=== PATIENT | male | born 1970 | race Hispanic/Latino ===

== ENCOUNTER 2017-10-16 12:22 | Inpatient (IN) | payer OTHER ==
[~2017-10-16] VITALS: Ht 175.3 cm; Wt 163.9 kg
[2017-10-16 12:42] LABS: BASOPHILS % (AUTO) 0.9 % (0.0-5.0); EOSINOPHILS % (AUTO) 4.4 % (0.0-8.0); HEMATOCRIT 43.9 % (42-54); LYMPHOCYTES % (AUTO) 17.3 % (21.0-51.0); MEAN CORPUSCULAR HEMOGLOBIN 28.4 pg (27.0-33.0); MEAN CORPUSCULAR VOLUME 83.7 fL (79-99); MONOCYTES % (AUTO) 7.4 % (3.0-13.0); PLATELET COUNT (AUTO) 221 K/uL (130-400); RED BLOOD CELL COUNT(AUTO) 5.24 MIL/uL (4.50-6.20); RED CELL DISTRIBUTION WIDTH 14.7 % (11.0-15.5); WHITE BLOOD COUNT (AUTO) 12.2 K/uL (4.8-10.8)
[2017-10-16 12:53] LABS: CREATININE 0.8 mg/dL (0.5-1.5); POTASSIUM 4.7 mmol/L (3.5-5.1)
[2017-10-16 12:56] LABS: INR 0.94 (0.85-1.15); PARTIAL THROMBOPLASTIN TIME 27.5 SEC (26.3-35.5); PROTHROMBIN TIME 9.9 SEC (9.6-11.6)
[2017-10-16 12:58] LABS: ALBUMIN 3.7 g/dL (3.5-5.0); BILIRUBIN,TOTAL 0.8 mg/dL (0.2-1.0); TOTAL PROTEIN, SERUM 8.1 g/dL (6.0-8.3)
[2017-10-16] MEDS ORDERED: VANCOMYCIN 1GM+NS 250ML 250 ML IV ONE (13:02)
[2017-10-16] MEDS ORDERED: SODIUM CHLORIDE 0.9% 10 ML VIAL IVP PRN (15:45)
[2017-10-16 16:00] VITALS: BP 152/86
[2017-10-16] MEDS: ENOXAPARIN SODIUM 40 MG/0.4 ML SYRINGE SQ SCH (17:32)
[2017-10-16] MEDS: CLINDAMYCIN 600 MG/D5% WATER 50 ML IV SCH (17:32)
[2017-10-16] MEDS ORDERED: HYDRALAZINE HCL 20 MG/ML VIAL IV PRN (18:45)
[2017-10-16] MEDS ORDERED: ACETAMINOPHEN 325 MG TAB PO PRN (18:45)
[2017-10-16 20:00] VITALS: BP 148/88
[2017-10-16] MEDS: FAMOTIDINE 20MG TAB 20 MG TAB PO SCH (21:05)
[2017-10-17] VITALS: BP 132/76
[2017-10-17] MEDS ORDERED: SODIUM CHLORIDE 0.9% 500ML 500 ML IV ONE (01:28)
[2017-10-17] MEDS: CLINDAMYCIN 600 MG/D5% WATER 50 ML IV SCH ×2 (01:35→08:27)
[2017-10-17 04:00] VITALS: BP 142/94
[2017-10-17 05:37] LABS: BASOPHILS % (AUTO) 0.8 % (0.0-5.0); EOSINOPHILS % (AUTO) 5.5 % (0.0-8.0); HEMATOCRIT 39.8 % (42-54); MEAN CORPUSCULAR HEMOGLOBIN 29.3 pg (27.0-33.0); MEAN CORPUSCULAR HGB CONC 34.7 g/dL (32.0-36.0); MEAN CORPUSCULAR VOLUME 84.5 fL (79-99); NEUTROPHILS % (AUTO) 62.7 % (40.0-77.0); PLATELET COUNT (AUTO) 207 K/uL (130-400); RED BLOOD CELL COUNT(AUTO) 4.71 MIL/uL (4.50-6.20); RED CELL DISTRIBUTION WIDTH 15.2 % (11.0-15.5); WHITE BLOOD COUNT (AUTO) 9.8 K/uL (4.8-10.8)
[2017-10-17 05:55] LABS: CREATININE 0.9 mg/dL (0.5-1.5); POTASSIUM 4.1 mmol/L (3.5-5.1)
[2017-10-17 06:00] LABS: HEMOGLOBIN A1C 6.9 % (4.0-6.0)
[2017-10-17] MEDS ORDERED: SODIUM CHLORIDE 0.9% 250 ML IV ONE (08:08)
[2017-10-17 08:28] VITALS: BP 162/95
[2017-10-17] MEDS: FAMOTIDINE 20MG TAB 20 MG TAB PO SCH (08:28)
[2017-10-17] MEDS: ENOXAPARIN SODIUM 40 MG/0.4 ML SYRINGE SQ SCH (08:28)
[2017-10-17] MEDS ORDERED: [UNRECOGNIZED DRUG - CODE] IV (10:21)
[2017-10-17] MEDS ORDERED: METF500T6 PO (10:21)
[2017-10-17 11:58] VITALS: BP 143/84
== END 2017-10-17 17:00 | disposition home or self-care (01) | DRG 383 ==
LOC: EDH 12:22 → EDHIP 14:45 → 3BH 15:19
PROVIDERS: ADMIT Family Medicine; ATTEND Family Medicine
DX: L03.115 Cellulitis of right lower limb (principal); D72.829 Elevated white blood cell count, unspecified; L03.116 Cellulitis of left lower limb; I10 Essential (primary) hypertension; Z88.0 Allergy status to penicillin; Z83.3 Family history of diabetes mellitus
CPT/HCPCS: 36415; 80048; 80053; 80061; 83036; 83605; 83880; 85025; 85610; 85651; 85730; 87040; 93970; J1650; J3370; J3490; J7030; J7040

== ENCOUNTER 2023-03-04 17:44 | Inpatient (IN) | payer OTHER ==
[~2023-03-04] VITALS: Ht 172.7 cm; Wt 164.4 kg
[~2023-03-04 17:44] MED LIST: METF-444 PO; [UNRECOGNIZED DRUG - CODE] IV
[2023-03-04 18:20] LABS: HEMATOCRIT 45.4 % (42-54); MEAN CORPUSCULAR HEMOGLOBIN 27.7 pg (27.0-33.0); MEAN CORPUSCULAR HGB CONC 33.3 g/dL (32.0-36.0); MEAN CORPUSCULAR VOLUME 83.3 fL (79-99); RED BLOOD CELL COUNT(AUTO) 5.45 MIL/uL (4.50-6.20); RED CELL DISTRIBUTION WIDTH 14.6 % (11.0-15.5); WHITE BLOOD COUNT (AUTO) 10.4 K/uL (4.8-10.8)
[2023-03-04 18:41] LABS: CREATININE 0.9 mg/dL (0.5-1.5); POTASSIUM 3.8 mmol/L (3.5-5.1)
[2023-03-04 20:00] VITALS: BP 144/80; PULSE 63; RESP 16
[2023-03-04] MEDS ORDERED: IOHEXOL-350 75 ML VIAL IV ONE (20:39)
[2023-03-04] MEDS ORDERED: VANCOMYCIN PROTOCOL PER PHARMACY IV PRN (22:00)
[2023-03-04] MEDS ORDERED: MORPHINE 4 MG SYG IV PRN (22:00)
[2023-03-04] MEDS ORDERED: HYDRALAZINE 20MG/ML VIAL IV PRN (22:00)
[2023-03-04] MEDS ORDERED: MAGNESIUM 2GM PREMIX 50ML 50 ML IV PRN (22:00)
[2023-03-04] MEDS ORDERED: MORPHINE 2 MG SYG IV PRN (22:00)
[2023-03-04] MEDS ORDERED: ACETAMINOPHEN 325 MG TAB PO PRN ×2 (22:00)
[2023-03-04] MEDS ORDERED: ONDANSETRON 4MG INJ IV PRN (22:00)
[2023-03-04] MEDS ORDERED: POTASSIUM CHLORIDE 10% ELIXIR 20 MEQ/15 ML UDCUP PO PRN (22:00)
[2023-03-04] MEDS ORDERED: POTASSIUM CHLORIDE 20MEQ/100ML 100 ML IV PRN (22:00)
[2023-03-04] MEDS ORDERED: VANCOMYCIN 2GM/500 ML BAG 500 ML IV ONE (22:30)
[2023-03-04] MEDS: CEFEPIME HCL 1 GM VIAL IVPB SCH (22:41)
[2023-03-04] MEDS ORDERED: CARV25TA PO (22:57)
[2023-03-04] MEDS ORDERED: LISI20TA24 PO (22:57)
[2023-03-04] MEDS ORDERED: FURO20TA4 PO (22:57)
[2023-03-04] MEDS ORDERED: METF-444 PO (22:57)
[2023-03-04] MEDS ORDERED: HYDR25 PO (22:58)
[2023-03-04] MEDS ORDERED: FELO5TAB48 PO (22:58)
[2023-03-05] VITALS (7 sets, daily range): BP systolic 117–154; BP diastolic 53–87; PULSE 58–62; RESP 16–20; O2SAT 98
[2023-03-05 04:32] LABS: BASOPHILS # (AUTO) 0.07 K/uL (0.00-0.20); BASOPHILS % (AUTO) 0.7 % (0.0-5.0); EOSINOPHILS # (AUTO) 0.46 K/uL (0.00-0.70); EOSINOPHILS % (AUTO) 4.7 % (0.0-8.0); HEMATOCRIT 44.4 % (42-54); IMMATURE GRANULOCYTE ABSOLUTE 0.03 K/uL (0-1); LYMPHOCYTES # (AUTO) 2.3 K/uL (1.0-4.8); LYMPHOCYTES % (AUTO) 23.6 % (21.0-51.0); MEAN CORPUSCULAR HGB CONC 32.9 g/dL (32.0-36.0); MEAN CORPUSCULAR VOLUME 85.1 fL (79-99); MONOCYTES # (AUTO) 0.8 K/uL (0.1-1.0); MONOCYTES % (AUTO) 8.6 % (3.0-13.0); NEUTROPHILS % (AUTO) 62.1 % (40.0-77.0); PLATELET COUNT (AUTO) 216 K/uL (130-400); RED BLOOD CELL COUNT(AUTO) 5.22 MIL/uL (4.50-6.20); RED CELL DISTRIBUTION WIDTH 14.5 % (11.0-15.5); WHITE BLOOD COUNT (AUTO) 9.7 K/uL (4.8-10.8)
[2023-03-05 04:50] LABS: CREATININE 0.8 mg/dL (0.5-1.5); MAGNESIUM 1.8 mg/dL (1.80-2.40); POTASSIUM 3.3 mmol/L (3.5-5.1)
[2023-03-05] MEDS: KCL 20 MEQ ERTAB PO PRN ×3 (05:55→13:32)
[2023-03-05] MEDS: CEFEPIME HCL 1 GM VIAL IVPB SCH ×3 (05:57→22:10)
[2023-03-05 06:30] LABS: HEMOGLOBIN A1C 6.7 % (4.0-6.0)
[2023-03-05] MEDS: INSULIN HUMULIN R 100 UNIT/ML 3ML SQ SCH ×4 (06:52→20:26)
[2023-03-05] MEDS: LISINOPRIL 20 MG TABLET PO SCH ×2 (09:52→20:24)
[2023-03-05] MEDS: HYDRALAZINE 25MG TABLET PO SCH ×2 (09:53→20:25)
[2023-03-05] MEDS: AMLODIPINE 5 MG TAB PO SCH (09:53)
[2023-03-05] MEDS: FAMOTIDINE 20MG TAB PO SCH ×2 (09:53→20:25)
[2023-03-05] MEDS: ENOXAPARIN SODIUM 40 MG/0.4 ML SYRINGE SQ SCH (09:54)
[2023-03-05] MEDS: CARVEDILOL 25 MG TABLET PO SCH ×2 (09:54→20:25)
[2023-03-05] MEDS: VANCOMYCIN 1.5 GM/250 ML BAG 250 ML IV SCH ×2 (10:49→22:10)
[2023-03-06] VITALS (7 sets, daily range): BP systolic 116–146; BP diastolic 64–83; PULSE 60–65; RESP 16–20; O2SAT 95–98
[2023-03-06 03:38] LABS: BASOPHILS # (AUTO) 0.05 K/uL (0.00-0.20); BASOPHILS % (AUTO) 0.5 % (0.0-5.0); EOSINOPHILS # (AUTO) 0.39 K/uL (0.00-0.70); EOSINOPHILS % (AUTO) 4.3 % (0.0-8.0); HEMATOCRIT 41.9 % (42-54); IMMATURE GRANULOCYTE ABSOLUTE 0.03 K/uL (0-1); LYMPHOCYTES % (AUTO) 21.4 % (21.0-51.0); MEAN CORPUSCULAR HEMOGLOBIN 28.1 pg (27.0-33.0); MEAN CORPUSCULAR HGB CONC 33.7 g/dL (32.0-36.0); MEAN CORPUSCULAR VOLUME 83.6 fL (79-99); MONOCYTES # (AUTO) 0.8 K/uL (0.1-1.0); MONOCYTES % (AUTO) 9.1 % (3.0-13.0); NEUTROPHILS # (AUTO) 5.9 K/uL (1.8-7.7); NEUTROPHILS % (AUTO) 64.4 % (40.0-77.0); PLATELET COUNT (AUTO) 199 K/uL (130-400); RED BLOOD CELL COUNT(AUTO) 5.01 MIL/uL (4.50-6.20); RED CELL DISTRIBUTION WIDTH 14.4 % (11.0-15.5); WHITE BLOOD COUNT (AUTO) 9.1 K/uL (4.8-10.8)
[2023-03-06 03:40] LABS: CREATININE 0.9 mg/dL (0.5-1.5); MAGNESIUM 1.9 mg/dL (1.80-2.40); POTASSIUM 3.7 mmol/L (3.5-5.1)
[2023-03-06] MEDS: KCL 20 MEQ ERTAB PO PRN (04:15)
[2023-03-06] MEDS: CEFEPIME HCL 1 GM VIAL IVPB SCH ×3 (05:45→20:41)
[2023-03-06] MEDS: INSULIN HUMULIN R 100 UNIT/ML 3ML SQ SCH ×4 (06:34→20:41)
[2023-03-06] MEDS: FAMOTIDINE 20MG TAB PO SCH ×2 (09:32→20:40)
[2023-03-06] MEDS: VANCOMYCIN 1.5 GM/250 ML BAG 250 ML IV SCH ×2 (09:32→20:39)
[2023-03-06] MEDS: AMLODIPINE 5 MG TAB PO SCH (09:32)
[2023-03-06] MEDS: LISINOPRIL 20 MG TABLET PO SCH ×2 (09:32→20:40)
[2023-03-06] MEDS: CARVEDILOL 25 MG TABLET PO SCH ×2 (09:32→20:40)
[2023-03-06] MEDS: ENOXAPARIN SODIUM 40 MG/0.4 ML SYRINGE SQ SCH (09:33)
[2023-03-06] MEDS: HYDRALAZINE 25MG TABLET PO SCH ×2 (09:33→20:40)
[2023-03-07 03:33] LABS: BASOPHILS # (AUTO) 0.06 K/uL (0.00-0.20); BASOPHILS % (AUTO) 0.7 % (0.0-5.0); EOSINOPHILS % (AUTO) 4.6 % (0.0-8.0); IMMATURE GRANULOCYTE ABSOLUTE 0.03 K/uL (0-1); LYMPHOCYTES # (AUTO) 1.9 K/uL (1.0-4.8); LYMPHOCYTES % (AUTO) 21.8 % (21.0-51.0); MEAN CORPUSCULAR HEMOGLOBIN 27.9 pg (27.0-33.0); MEAN CORPUSCULAR VOLUME 84.6 fL (79-99); MONOCYTES # (AUTO) 0.8 K/uL (0.1-1.0); MONOCYTES % (AUTO) 9.4 % (3.0-13.0); NEUTROPHILS # (AUTO) 5.5 K/uL (1.8-7.7); NEUTROPHILS % (AUTO) 63.2 % (40.0-77.0); PLATELET COUNT (AUTO) 199 K/uL (130-400); RED CELL DISTRIBUTION WIDTH 14.5 % (11.0-15.5); WHITE BLOOD COUNT (AUTO) 8.7 K/uL (4.8-10.8)
[2023-03-07 03:45] LABS: CREATININE 0.8 mg/dL (0.5-1.5); POTASSIUM 3.7 mmol/L (3.5-5.1)
[2023-03-07 03:50] LABS: B-TYPE NATRIURETIC PEPTIDE 37 pg/mL (0-100)
[2023-03-07 03:59] VITALS: BP 138/76; PULSE 61; RESP 20
[2023-03-07] MEDS: CEFEPIME HCL 1 GM VIAL IVPB SCH (06:00)
[2023-03-07] MEDS: INSULIN HUMULIN R 100 UNIT/ML 3ML SQ SCH (06:10)
[2023-03-07 07:35] VITALS: O2SAT 94
[2023-03-07] MEDS ORDERED: CLIN-141 PO (07:43)
[2023-03-07 08:01] VITALS: BP 146/95; PULSE 56; RESP 19
[2023-03-07] MEDS: ENOXAPARIN SODIUM 40 MG/0.4 ML SYRINGE SQ SCH (09:00)
[2023-03-07] MEDS: FAMOTIDINE 20MG TAB PO SCH (09:23)
[2023-03-07] MEDS: LISINOPRIL 20 MG TABLET PO SCH (09:23)
[2023-03-07] MEDS: HYDRALAZINE 25MG TABLET PO SCH (09:23)
[2023-03-07] MEDS: AMLODIPINE 5 MG TAB PO SCH (09:24)
[2023-03-07 09:25] VITALS: BP 146/95
[2023-03-07] MEDS: CARVEDILOL 25 MG TABLET PO SCH (09:25)
[2023-03-07] MEDS: VANCOMYCIN 1.5 GM/250 ML BAG 250 ML IV SCH ×2 (09:25→09:37)
== END 2023-03-07 12:00 | disposition home or self-care (01) | DRG 603 ==
LOC: EDH 17:44 → EDHIP 17:45 → 3BH 22:16
PROVIDERS: ADMIT Internal Medicine; ATTEND Internal Medicine
DX: L03.116 Cellulitis of left lower limb (principal); L97.929 Non-pressure chronic ulcer of unspecified part of left lower leg with unspecified severity; Z68.43 Body mass index [BMI] 50.0-59.9, adult; E78.00 Pure hypercholesterolemia, unspecified; N20.0 Calculus of kidney; E66.9 Obesity, unspecified; E11.51 Type 2 diabetes mellitus with diabetic peripheral angiopathy without gangrene; I10 Essential (primary) hypertension; I99.8 Other disorder of circulatory system; Z75.3 Unavailability and inaccessibility of health-care facilities; Z87.442 Personal history of urinary calculi; Z79.84 Long term (current) use of oral hypoglycemic drugs; Z79.899 Other long term (current) drug therapy
CPT/HCPCS: 36415; 71270; 80048; 80202; 82948; 83036; 83605; 83735; 83880; 84145; 85025; 85027; 85378; 93971; G0378; J0692; J1650; J3475; Q9967; J3370

== ENCOUNTER 2024-04-22 15:37 | Emergency (ER) | payer SELFPAY ==
[~2024-04-22] VITALS: Ht 172.7 cm; Wt 166.5 kg
[~2024-04-22 15:37] MED LIST changes: +CARV25TA PO; +CLIN-141 PO; +FELO5TAB48 PO; +FURO20TA4 PO; +HYDR25 PO; +LISI20TA24 PO; -[UNRECOGNIZED DRUG - CODE] IV
[2024-04-22 15:54] VITALS: TEMP 97.9
--- NOTE | 2024-04-22 15:55 | ERN ---
ED Note History of Present Illness Stated Complaint: STOMACH PAIN Chief Complaint: Abdominal Pain Time Seen by MD: 15:49 Dictation: PATIENT IS A 54-YEAR-OLD MALE COMING IN TODAY WITH COMPLAINTS OF HAVING LOWER ABDOMINAL PAIN THAT OCCASIONALLY RADIATES TO HIS RIGHT LOWER QUADRANT ONSET SEVERAL MONTHS AGO. NO FEVER NO CHILLS NO NAUSEA VOMITING. STATES HE SAW HIS PRIMARY CARE DOCTOR ABOUT A MONTH AGO FOR THE SAME COMPLAINT, AND WITHOUT BENEFIT OF LABS OR RADIOLOGY SHE TOLD HIM IT COULD BE DIVERTICULITIS OR A KINK OR HERNIA. HE STATES SHE DID NOT SEND HIM FOR ANY TESTING OR LABS BECAUSE OF HIS INSURANCE. STATES HE NOTICED WHEN HE WAS EATING NUTS THAT IT WOULD CAUSE MORE PAIN AND HE STOPPED EATING NOSE SEVERAL WEEKS AGO. Allergies: Coded Allergies: Penicillins (Unverified Allergy, Intermediate, RASH, 10/16/17) Home Meds Active Scripts Clindamycin HCl (Clindamycin HCl) 300 Mg Capsule, 600 MG PO q8hr for 5 Days, #15 CAP Prov:TAVIA MOTA ESCROW ASSISTANT 03/07/23 Reported Medications Hydralazine HCl (Apresoline) 25 Mg Tab, 25 MG PO BID for blood pressure 03/04/23 Felodipine (Felodipine ER) 5 Mg Tab.er.24h, 5 MG PO DAILY for blood pressure 03/04/23 Metformin HCl (Metformin HCl) 500 Mg Tablet, 500 MG PO BID, TAB 03/04/23 Carvedilol (Carvedilol) 25 Mg Tablet, 25 MG PO BID 03/04/23 Lisinopril (Lisinopril) 20 Mg Tablet, 20 MG PO BID for blood pressure 03/04/23 Furosemide (Furosemide) 20 Mg Tablet, 20 MG PO DAILY PRN for fluid retention 03/04/23 Past Medical History Past Medical History: Diabetes-Type II, High Cholesterol, Hypertension Surgical History: Other Surgical History Other: KNEE PSYCH History: no pertinent psych hx RN Note Reviewed/Agreed w/PFSH: Yes Review of System Dictation CONSTITUTIONAL: NEGATIVE EXCEPT FOR HPI HEAD/FACE: NEGATIVE EXCEPT FOR HPI EENT: NEGATIVE EXCEPT FOR HPI RESPIRATORY: NEGATIVE EXCEPT FOR HPI GASTROINTESTINAL/ABDOMINAL: NEGATIVE EXCEPT FOR HPI PERIUMBILICAL PAIN GENITOURINARY: NEGATIVE EXCEPT FOR HPI MUSCULOSKELETAL: NEGATIVE EXCEPT FOR HPI INTEGUMENTARY: NEGATIVE EXCEPT FOR HPI NEUROLOGICAL/PSYCH: NEGATIVE EXCEPT FOR HPI HEMATOLOGIC/LYMPHATIC: NEGATIVE EXCEPT FOR HPI ALL SYSTEMS NEGATIVE, EXCEPT NOTED ABOVE. 13 POINT REVIEW OF SYSTEMS ASSESSED AND ALL NEGATIVE EXCEPT FOR ABOVE. Initial Vital Sign VS Vital Signs Date Time Temp Pulse Resp B/P (MAP) Pulse Ox O2 Delivery O2 Flow Rate FiO2 04/22/24 15:54 97.9 81 16 203/112 98 Room Air* 0 21 Physical Exam Dictation VITAL SIGNS REVIEWED GENERAL APPEARANCE: ALERT, ORIENTED X 3, MILD ACUTE DISTRESS, WELL DEVELOPED, NOURISHED. MORBIDLY OBESE AND MAKES ASSESSMENT DIFFICULT DUE TO BODY HABITUS HEAD AND FACE: NON-TRAUMATIC. EYES: PERRL, PINK CONJUNCTIVAS, EYELID NO TRAUMA, ANTERIOR CHAMBER WITH ARCUS SENILIS. EARS: PINNAS INTACT AND NO SIGNS OF TRAUMA OR ERYTHEMA EAR CANALS CLEAR AND NO DISCHARGE TM NO ERYTHEMA NOSE: NO DISCHARGE, NO BLEEDING. OROPHARYNX: MOUTH NORMAL, TONGUE PINK, PHARYNX CLEAR,NO ERYTHEMA, TONSILS NO EXUDATES, NO ABSCESSES NOTED, MUCOUS MEMBRANE MOIST NECK: SUPPLE, NON-TENDER, NO THYROMEGALY, NO MASSES, NO JVD, NO BRUITS BREAST:DEFERRED CHEST:NO TENDERNESS, NO CREPITUS, NO PARADOXICAL MOVEMENT, NO RETRACTIONS LUNGS:CLEAR, WELL-VENTILATED, SYMMETRIC, NO RALES, NO WHEEZING, NO RHONCHI, NO STRIDOR, GOOD BREATH SOUNDS BILATERALLY HEART: REGULAR RATE, REGULAR RHYTHM, VASCULAR: NO PERIPHERAL EDEMA, ABDOMEN: SOFT, POSITIVE BOWEL SOUNDS, NONDISTENDED, NO GUARDING, PERIUMBILICAL TENDERNESS, NEGATIVE REBOUND MCBURNEY'S POINT PAIN RECTAL: DEFERRED GENITAL: DEFERRED NEUROLOGICAL: NORMAL SPEECH, MOTOR FUNCTION INTACT, SENSORY FUNCTION INTACT MUSCULOSKELETAL: NECK NONTENDER, FULL RANGE OF MOTION, BACK NONTENDER, FULL RANGE OF MOTION, EXTREMITIES: NONTENDER, FULL RANGE OF MOTION SKIN: COLOR PINK, DRY, NO TURGOR, NO RASH, NO LACERATIONS, NO ABRASIONS, NO CONTUSIONS. LYMPHATIC: DEFERRED Results (Laboratory/Radiology) Laboratory/Radiology Laboratory Tests Test 04/22/24 16:57 White Blood Count 12.5 K/uL (4.8-10.8) H Red Blood Count 6.13 MIL/uL (4.50-6.20) Hemoglobin 17.2 g/dL (14.0-18.0) Hematocrit 50.9 % (42-54) Mean Corpuscular Volume 83.0 fL (79-99) Mean Corpuscular Hemoglobin 28.1 pg (27.0-33.0) Mean Corpuscular Hemoglobin Concent 33.8 g/dL (32.0-36.0) Red Cell Distribution Width 13.7 % (11.0-15.5) Platelet Count 282 K/uL (130-400) Mean Platelet Volume 10.0 fL (7.5-10.5) Immature Granulocyte % (Auto) 0.3 % (0-1) Neutrophils (%) (Auto) 78.8 % (40.0-77.0) H Lymphocytes (%) (Auto) 12.9 % (21.0-51.0) L Monocytes (%) (Auto) 6.1 % (3.0-13.0) Eosinophils (%) (Auto) 1.3 % (0.0-8.0) Basophils (%) (Auto) 0.6 % (0.0-5.0) Neutrophils # (Auto) 9.8 K/uL (1.8-7.7) H Lymphocytes # (Auto) 1.6 K/uL (1.0-4.8) Monocytes # (Auto) 0.8 K/uL (0.1-1.0) Eosinophils # (Auto) 0.16 K/uL (0.00-0.70) Basophils # (Auto) 0.08 K/uL (0.00-0.20) Absolute Immature Granulocyte (auto 0.04 K/uL (0-1) Nucleated Red Blood Cells 0.0 % (0.0-0.19) Sodium Level 142 mmol/L (136-145) Potassium Level 3.4 mmol/L (3.5-5.1) L Chloride Level 102 mmol/L (101-111) Carbon Dioxide Level 31 mmol/L (21-32) Blood Urea Nitrogen 10 mg/dL (7-18) Creatinine 0.9 mg/dL (0.5-1.3) Glomerular Filtration Rate Calc 101 mL/min (>90) Random Glucose 130 mg/dL (70-105) H Total Calcium 8.9 mg/dL (8.5-10.1) Lipase 43 U/L (16-77) COMPARISON: None FINDINGS: ABDOMEN: Heart size is normal. Visible lung bases are clear. The liver is normal in size and smooth in contour without lesions or biliary duct dilation. Diffuse low attenuation of the liver parenchyma suggests fatty change. The spleen is normal in size without lesions. A few punctate calcific gallstones. The pancreas appears normal without pancreatic duct dilation. The adrenal glands appear normal. Several subcentimeter nonobstructing stones along the medullary portions of both kidneys, left greater than right. Approximately 5-6 on the left and 5 on the right. Cortical volume loss at the upper pole of left kidney may be related to prior infection or other insult. Cortical nephrograms are symmetric and normal in appearance bilaterally. No evidence for intra-abdominal free air or organized fluid collection. No retrocrural, intraabdominal, or retroperitoneal lymphadenopathy identified. No aortic aneurysmal dilation or dissection identified. PELVIS: No evidence for free air or organized pelvic fluid collection. No significant pelvic adenopathy detected. Fluid-filled dilated small bowel loops secondary to small to medium-sized nonobstructing umbilical hernia which also contains a small amount of fluid. Terminal ileum appears normal. The appendix appears normal. The urinary bladder appears unremarkable. Visible osseous structures are intact. IMPRESSION: Small to medium-sized umbilical hernia contributing to acute small bowel obstruction. General surgery consult is recommended. Cholelithiasis and hepatic steatosis. Labs Reviewed?: Yes ED Course ED Course Orders Procedure Category Date Status Time Cbc With Differential LAB 04/22/24 Complete 15:52 Urinalysis Profile LAB 04/22/24 Logged 15:52 Ct Abdomen/Pelvis CT 04/22/24 Resulted W/Contrast 15:52 0.9%Nacl 1000ml (Ns PHA 04/22/24 Complete 1000ml) 16:00 Ketorolac PHA 04/22/24 Complete Tromethamine 30mg/Ml 16:00 Lipase LAB 04/22/24 Complete 15:52 Basic Metabolic Panel LAB 04/22/24 Complete 15:52 Iohexol (Omnipaque) PHA 04/22/24 Complete 17:24 Current Medications Medications (Trade) Dose Ordered Sig/Christian Route PRN Reason Start Time Stop Time Status Last Admin Dose Admin Iohexol (Omnipaque) 35,000 mg STK-MED ONCE IV 04/22/24 17:24 04/22/24 17:24 DC Ketorolac Tromethamine (toRADol) 30 mg ONCE ONCE IVP 04/22/24 16:00 04/22/24 16:08 DC 04/22/24 17:09 Sodium Chloride 1,000 ml @ 0 mls/hr ONCE ONCE IV 04/22/24 16:00 04/22/24 16:08 DC 04/22/24 17:10 Vital Signs Date Time Temp Pulse Resp B/P (MAP) Pulse Ox O2 Delivery O2 Flow Rate FiO2 04/22/24 17:59 74 20 164/86 99 Room Air* 0 21 04/22/24 15:54 97.9 81 16 203/112 98 Room Air 0 04/22/24 15:54 97.9 81 16 203/112 98 Room Air* 0 21 EIGHTEEN 30, PAGED X2 WITHOUT RESULTS. PATIENT IN NO ACUTE DISTRESS HERNIA REMAINS REDUCED. WE WILL DISCHARGE PATIENT HOME TO FOLLOW UP WITH HER IN THE NEXT 1-2 DAYS NEEDED ALSO SUGGESTED WEARING AN ABDOMINAL BINDER. Medical Decision Making MDM MDM: DIFFERENTIAL DIAGNOSIS: APPENDICITIS VERSUS DIVERTICULIT IS/HERNIA/UTI/ELECTROLYTE IMBALANCE/DEHYDRATION RATIONALE: TESTS CONSIDERED AND ORDERED SECONDARY TO SHARED DECISION MAKING INCL UDE: LABS/RADIOLOGY PREVIOUS OUTSIDE RECORDS REVIEWED: OLD ER VISITS. REVIEWED RISK OF COMPLICATION AND/OR MORBIDITY OR MORTALITY OF PATIENT MANAGEMENT: NONE MEDICATIONS-PER MEDICATION RECONCILIATION SEE NURSE'S NOTES NEED FOR HOSPITALIZATION: PATIENT DOES NOT MEET CRITERIA FOR HOSPITALIZATION. NO, HERNIA REDUCED NO NAUSEA NO VOMITING AND PATIENT IN WITHOUT PAIN NEED FOR EMERGENCY MAJOR/MINOR SURGERY: NO THERE ARE NO SOCIAL CONCERNS WITH THIS PATIENT. PRESCRIPTION DRUG MANAGEMENT IBUPROFEN PRESCRIPTIONS WILL INCLUDE SYMPTOMATIC CARE PATIENT'S PRIOR EXTERNAL MEDICAL RECORDS FROM OTHER ER VISITS WERE REVIEWED BY ME INDICATED. PRIOR TESTING AND RESULTS FROM PREVIOUS VISITS WERE REVIEWED. PRIOR TESTS WERE TAKEN INTO ACCOUNT WITH MEDICAL DECISION MAKING AND RESOURCE UTILIZATION, INDEPENDENT HISTORIAN/HISTORIANS WERE USED TO OBTAIN COMPLETE MEDICAL HISTORY. I INDEPENDENTLY INTERPRETED THE TEST THAT WERE PERFORMED, RESULTS WERE REVIEWED BY ME AND CONSIDERED FINDINGS ON RADIOLOGY IF ORDERED. MEDICAL MANAGEMENT AND EXAMINATION INTERPRETATION DISCUSSIONS WERE HAD BY ME WITH OTHER QUALIFIED HEALTHCARE PROFESSIONALS INDICATED FOR THE PATIENT'S CARE. PREVIOUS SEVEN HE HAD ONE Procedure Procedure Dictation: ONE THOUSAND EIGHT HUNDRED, PATIENT HAD PROCEDURE EXPLAINED HE AGREED TO PROCEED. PATIENT WAS PLACED IN [place] UMBILICAL HERNIA WAS REDUCED WITH REDUCTION FELT NO PAIN AT THIS TIME. PATIENT TOLERATED WELL. WE WILL CONSULT GENERAL SURGEON FOR ADDITIONAL GUIDANCE DX & DISP Disposition: Discharge Departure Impression: Primary Impression: Umbilical hernia Condition: Stable Scripts Ibuprofen (Ibuprofen 800 mg Tab) 800 Mg Tab 800 MG PO Q8H PRN for fever or pain, #30 TAB 0 Refills Prov: DREAD GUERRERO NP 04/22/24 Additional Instructions: FOLLOW-UP WITH PRIMARY CARE PROVIDER IN 1 TO 2 DAYS. TAKE MEDICATIONS DIRECTED HERE IN THE EMERGENCY ROOM. OKAY TO CONTINUE HOME MEDICATIONS UNLESS OTHERWISE DISCUSSED DURING YOUR VISIT IN THE EMERGENCY ROOM TODAY. RETURN TO YOUR NEAREST EMERGENCY ROOM IF SYMPTOMS WORSEN OR IF THERE IS NO IMPROVEMENT. CALL 911 IF YOU NEED IMMEDIATE ASSISTANCE. TAKE TYLENOL OR MOTRIN [id number] NEEDED AND IF NO CONTRAINDICATIONS ARE PRESENT. INCREASE ORAL HYDRATION. A WOUND CULTURE OR URINE CULTURE WAS ORDERED HERE IN THE EMERGENCY ROOM DEPARTMENT PLEASE FOLLOW-UP WITH PRIMARY CARE PROVIDER AND ADVISE THEM TO GET REPEAT PORTS FROM OUR FACILITY. IF YOU HAD ANY JUDITH WRAP/SPLINTS THAT WERE APPLIED HERE, PLEASE DO NOT REMOVE THEM UNTIL YOU SEE YOUR PRIMARY CARE OR SPECIALTY. SUGGEST WEARING ABDOMINAL BINDER AT ALL TIMES. NO LIFTING GREATER THAN 10 LB UNTIL CLEARED BY SURGEON. CALL FOR AN APPOINTMENT IN 1-2 DAYS Referrals: MENDEL TEAGUE NP (PCP) M[place] DAY MD Time of Disposition: 18:34 I have reviewed the case, and I agree with, Diagnosis and Plan DREAD GUERRERO NP Apr 22, 2024 15:55
[2024-04-22 17:02] LABS: BASOPHILS # (AUTO) 0.08 K/uL (0.00-0.20); BASOPHILS % (AUTO) 0.6 % (0.0-5.0); EOSINOPHILS # (AUTO) 0.16 K/uL (0.00-0.70); EOSINOPHILS % (AUTO) 1.3 % (0.0-8.0); HEMATOCRIT 50.9 % (42-54); IMMATURE GRANULOCYTE ABSOLUTE 0.04 K/uL (0-1); LYMPHOCYTES # (AUTO) 1.6 K/uL (1.0-4.8); LYMPHOCYTES % (AUTO) 12.9 % (21.0-51.0); MEAN CORPUSCULAR HEMOGLOBIN 28.1 pg (27.0-33.0); MEAN CORPUSCULAR HGB CONC 33.8 g/dL (32.0-36.0); MONOCYTES # (AUTO) 0.8 K/uL (0.1-1.0); MONOCYTES % (AUTO) 6.1 % (3.0-13.0); NEUTROPHILS # (AUTO) 9.8 K/uL (1.8-7.7); NEUTROPHILS % (AUTO) 78.8 % (40.0-77.0); PLATELET COUNT (AUTO) 282 K/uL (130-400); RED BLOOD CELL COUNT(AUTO) 6.13 MIL/uL (4.50-6.20); RED CELL DISTRIBUTION WIDTH 13.7 % (11.0-15.5); WHITE BLOOD COUNT (AUTO) 12.5 K/uL (4.8-10.8)
[2024-04-22] MEDS: ketOROlac 30MG VIAL (30MG/ML) IVP ONE (17:09)
[2024-04-22] MEDS: 0.9%NACL 1000ML 1,000 ML IV ONE (17:10)
[2024-04-22 17:18] LABS: CREATININE 0.9 mg/dL (0.5-1.3); POTASSIUM 3.4 mmol/L (3.5-5.1)
[2024-04-22] MEDS ORDERED: IOHEXOL 350 MG/ML 100ML INFUS..BTL IV ONE (17:24)
--- NOTE | 2024-04-22 17:48 | HMCIMG ---
CT ABDOMEN WITH CONTRAST. CT PELVIS WITH CONTRAST INDICATION: Intermittent periumbilical pain radiating to right lower abdomen TECHNIQUE: Routine transaxial images using 5 mm slice thickness were obtained after the intravenous infusion of 100 mL of Omnipaque 350 without adverse effects. Oral contrast was not administered. Rectal contrast was not administered. Coronal and sagittal reformatted images acquired for interpretation. CT was performed with one or more of the following dose reduction techniques: Automated exposure control, adjustment of the mA and/or kV according to patient size, or use of iterative reconstruction technique. COMPARISON: None FINDINGS: ABDOMEN: Heart size is normal. Visible lung bases are clear. The liver is normal in size and smooth in contour without lesions or biliary duct dilation. Diffuse low attenuation of the liver parenchyma suggests fatty change. The spleen is normal in size without lesions. A few punctate calcific gallstones. The pancreas appears normal without pancreatic duct dilation. The adrenal glands appear normal. Several subcentimeter nonobstructing stones along the medullary portions of both kidneys, left greater than right. Approximately 5-6 on the left and 5 on the right. Cortical volume loss at the upper pole of left kidney may be related to prior infection or other insult. Cortical nephrograms are symmetric and normal in appearance bilaterally. No evidence for intra-abdominal free air or organized fluid collection. No retrocrural, intraabdominal, or retroperitoneal lymphadenopathy identified. No aortic aneurysmal dilation or dissection identified. PELVIS: No evidence for free air or organized pelvic fluid collection. No significant pelvic adenopathy detected. Fluid-filled dilated small bowel loops secondary to small to medium-sized nonobstructing umbilical hernia which also contains a small amount of fluid. Terminal ileum appears normal. The appendix appears normal. The urinary bladder appears unremarkable. Visible osseous structures are intact. IMPRESSION: Small to medium-sized umbilical hernia contributing to acute small bowel obstruction. General surgery consult is recommended. Cholelithiasis and hepatic steatosis.
[2024-04-22 17:59] VITALS: BP 164/86; PULSE 74; RESP 20; O2SAT 99
[2024-04-22] MEDS ORDERED: IBUP-2077 PO (18:36)
[2024-04-22] MEDS: PoTASSium BIcarbonate/CIT AC 25 MEQ TABLET.EFF PO ONE (18:46)
== END 2024-04-22 18:53 | disposition home or self-care (01) ==
LOC: EDH 15:37
DX: K42.9 Umbilical hernia without obstruction or gangrene (principal); E11.9 Type 2 diabetes mellitus without complications; E78.00 Pure hypercholesterolemia, unspecified; I10 Essential (primary) hypertension; Z79.84 Long term (current) use of oral hypoglycemic drugs; Z88.0 Allergy status to penicillin
CPT/HCPCS: 99285; 74177; 96374; 96361; 80048; 83690; 85025; 36415; J7030; J1885; Q9967

== ENCOUNTER 2024-05-03 10:27 | Emergency (ER) | payer OTHER ==
[~2024-05-03] VITALS: Ht 172.7 cm; Wt 163.3 kg
[~2024-05-03 10:27] MED LIST changes: +IBUP-2077 PO
--- NOTE | 2024-05-03 10:33 | ERN ---
ED Note History of Present Illness Stated Complaint: UMBILICAL HERNIA Chief Complaint: Abdominal Pain Time Seen by MD: 10:29 Dictation: PATIENT IS A 54-YEAR-OLD MALE COMING IN TODAY WITH A KNOWN PERIUMBILICAL HERNIA HE HAS HAD FOR SEVERAL YEARS, GETTING WORSE. WAS HERE ON 04/22 AND HAD A HERNIA THAT WAS REDUCED AND HAD NO PAIN UNTIL YESTERDAY WHEN THE PAIN RETURNED. NO NAUSEA VOMITING NO FEVER. ADDITIONALLY PATIENT HAS NOT TAKEN HIS BLOOD PRESSURE MEDICATIONS, SYSTOLIC BP 190/114 Allergies: Coded Allergies: Penicillins (Unverified Allergy, Intermediate, RASH, 10/16/17) Home Meds Active Scripts Ibuprofen (Ibuprofen 800 mg Tab) 800 Mg Tab, 800 MG PO Q8H PRN for fever or pain, #30 TAB 0 Refills Prov:DREAD GUERRERO FREIGHT [employer] BUILDER 04/22/24 Clindamycin HCl (Clindamycin HCl) 300 Mg Capsule, 600 MG PO q8hr for 5 Days, #15 CAP Prov:TAVIA MOTA FREIGHT [employer] BUILDER 03/07/23 Reported Medications Hydralazine HCl (Apresoline) 25 Mg Tab, 25 MG PO BID for blood pressure 03/04/23 Felodipine (Felodipine ER) 5 Mg Tab.er.24h, 5 MG PO DAILY for blood pressure 03/04/23 Metformin HCl (Metformin HCl) 500 Mg Tablet, 500 MG PO BID, TAB 03/04/23 Carvedilol (Carvedilol) 25 Mg Tablet, 25 MG PO BID 03/04/23 Lisinopril (Lisinopril) 20 Mg Tablet, 20 MG PO BID for blood pressure 03/04/23 Furosemide (Furosemide) 20 Mg Tablet, 20 MG PO DAILY PRN for fluid retention 03/04/23 Past Medical History Past Medical History: Diabetes-Type II, High Cholesterol, Hypertension Additional Past Medical Hx: UMBILICAL HERNIA Surgical History: Other Surgical History Other: KNEE RN Note Reviewed/Agreed w/PFSH: Yes Review of System Dictation CONSTITUTIONAL: NEGATIVE EXCEPT FOR HPI HEAD/FACE: NEGATIVE EXCEPT FOR HPI EENT: NEGATIVE EXCEPT FOR HPI RESPIRATORY: NEGATIVE EXCEPT FOR HPI GASTROINTESTINAL/ABDOMINAL: NEGATIVE EXCEPT FOR HPI PERIUMBILICAL HERNIA PALPABLE REDUCIBLE AT PRESENT TIME GENITOURINARY: NEGATIVE EXCEPT FOR HPI MUSCULOSKELETAL: NEGATIVE EXCEPT FOR HPI INTEGUMENTARY: NEGATIVE EXCEPT FOR HPI NEUROLOGICAL/PSYCH: NEGATIVE EXCEPT FOR HPI HEMATOLOGIC/LYMPHATIC: NEGATIVE EXCEPT FOR HPI ALL SYSTEMS NEGATIVE, EXCEPT NOTED ABOVE. 13 POINT REVIEW OF SYSTEMS ASSESSED AND ALL NEGATIVE EXCEPT FOR ABOVE. Initial Vital Sign VS Vital Signs Date Time Temp Pulse Resp B/P (MAP) Pulse Ox O2 Delivery O2 Flow Rate FiO2 05/03/24 10:28 98.2 85 16 190/114 96 Room Air 0 05/03/24 13:29 21 Physical Exam Dictation VITAL SIGNS REVIEWED GENERAL APPEARANCE: ALERT, ORIENTED X 3, MILD ACUTE DISTRESS, WELL DEVELOPED, NOURISHED. MORBIDLY OBESE HEAD AND FACE: NON-TRAUMATIC. EYES: PERRL, PINK CONJUNCTIVAS, EYELID NO TRAUMA, ANTERIOR CHAMBER WITH ARCUS SE NILIS. EARS: PINNAS INTACT AND NO SIGNS OF TRAUMA OR ERYTHEMA EAR CANALS CLEAR AND NO DISCHARGE TM NO ERYTHEMA NOSE: NO DISCHARGE, NO BLEEDING. OROPHARYNX: MOUTH NORMAL, TONGUE PINK, PHARYNX CLEAR,NO ERYTHEMA, TONSILS NO EXUDATES, NO ABSCESSES NOTED, MUCOUS MEMBRANE MOIST NECK: SUPPLE, NON-TENDER, NO THYROMEGALY, NO MASSES, NO JVD, NO BRUITS BREAST:DEFERRED CHEST:NO TENDERNESS, NO CREPITUS, NO PARADOXICAL MOVEMENT, NO RETRACTIONS LUNGS:CLEAR, WELL-VENTILATED, SYMMETRIC, NO RALES, NO WHEEZING, NO RHONCHI, NO STRIDOR, GOOD BREATH SOUNDS BILATERALLY HEART: REGULAR RATE, REGULAR RHYTHM, NO MURMUR, NO GALLOPS VASCULAR: NO PERIPHERAL EDEMA, ABDOMEN: SOFT, POSITIVE BOWEL SOUNDS, NONDISTENDED, NO GUARDING, NONTENDER, NO REBOUND, NO MASSES NO HEPATOMEGALY, NO SPLENOMEGALY, NO BYNUM'S SIGN, UMBILICAL HERNIA, REDUCIBLE RECTAL: DEFERRED GENITAL: DEFERRED NEUROLOGICAL: NORMAL SPEECH, MOTOR FUNCTION INTACT, SENSORY FUNCTION INTACT MUSCULOSKELETAL: NECK NONTENDER, FULL RANGE OF MOTION, BACK NONTENDER, FULL RANGE OF MOTION, EXTREMITIES: NONTENDER, FULL RANGE OF MOTION SKIN: COLOR PINK, DRY, NO TURGOR, NO RASH, NO LACERATIONS, NO ABRASIONS, NO CONTUSIONS. LYMPHATIC: DEFERRED Results (Laboratory/Radiology) Laboratory/Radiology Laboratory Tests Test 05/03/24 11:30 White Blood Count 13.1 K/uL (4.8-10.8) H Red Blood Count 5.66 MIL/uL (4.50-6.20) Hemoglobin 16.2 g/dL (14.0-18.0) Hematocrit 47.2 % (42-54) Mean Corpuscular Volume 83.4 fL (79-99) Mean Corpuscular Hemoglobin 28.6 pg (27.0-33.0) Mean Corpuscular Hemoglobin Concent 34.3 g/dL (32.0-36.0) Red Cell Distribution Width 13.4 % (11.0-15.5) Platelet Count 299 K/uL (130-400) Mean Platelet Volume 10.3 fL (7.5-10.5) Immature Granulocyte % (Auto) 0.2 % (0-1) Neutrophils (%) (Auto) 78.8 % (40.0-77.0) H Lymphocytes (%) (Auto) 14.2 % (21.0-51.0) L Monocytes (%) (Auto) 5.6 % (3.0-13.0) Eosinophils (%) (Auto) 0.5 % (0.0-8.0) Basophils (%) (Auto) 0.7 % (0.0-5.0) Neutrophils # (Auto) 10.4 K/uL (1.8-7.7) H Lymphocytes # (Auto) 1.9 K/uL (1.0-4.8) Monocytes # (Auto) 0.7 K/uL (0.1-1.0) Eosinophils # (Auto) 0.06 K/uL (0.00-0.70) Basophils # (Auto) 0.09 K/uL (0.00-0.20) Absolute Immature Granulocyte (auto 0.03 K/uL (0-1) Nucleated Red Blood Cells 0.0 % (0.0-0.19) Sodium Level 143 mmol/L (136-145) Potassium Level 4.1 mmol/L (3.5-5.1) Chloride Level 103 mmol/L (101-111) Carbon Dioxide Level 34 mmol/L (21-32) H Blood Urea Nitrogen 11 mg/dL (7-18) Creatinine 0.9 mg/dL (0.5-1.3) Glomerular Filtration Rate Calc 101 mL/min (>90) Random Glucose 163 mg/dL (70-105) H Total Calcium 8.9 mg/dL (8.5-10.1) Troponin I High Sensitivity 8 ng/L (4-75) Lipase 51 U/L (16-77) CT ABDOMEN/PELVIS W/CONTRAST HISTORY: Increased umbilical pain COMPARISON: None TECHNIQUE: Multiple sequential axial images of the abdomen and pelvis were obtained from the dome of the diaphragm through symphysis pubis. Patient was given 100 cc of Omnipaque through intravenous route. Oral contrast was not given. FINDINGS: No pleural effusion is seen bilaterally. There are interstitial fibrosis. There is no evidence of parenchymal disease or pulmonary nodule of the visualized lower lungs. Degenerative changes of the thoracolumbar spine are present. The heart is not enlarged. Liver measures 18 cm. Gastric distention is seen. There is small bowel dilatation with air-fluid levels with transitional point at the level of the ventral hernia in the anterior pelvic wall with bowel content causing bowel obstruction. The liver, spleen, adrenal glands and pancreas are unremarkable. There is no evidence of hydronephrosis bilaterally. No evidence of renal stone is seen. Fecal material is seen in the colon. There are normal size retroperitoneal and mesenteric lymph nodes. No ascites is seen. Atherosclerotic changes are present. Appendix is not well seen limiting evaluation. Pelvic sidewalls are symmetric bilaterally. Bladder is poorly distended. IMPRESSION: 1. Gastric distention is seen. There is small bowel dilatation with air-fluid levels with transitional point at the level of the ventral hernia in the anterior pelvic wall with bowel content causing bowel obstruction. Labs Reviewed?: Yes EKG Comment: EKG NORMAL SINUS RHYTHM/HEART RATE 78/AXIS NORMAL/NO ECTOPY ED Course ED Course Orders Procedure Category Date Status Time Cbc With Differential LAB 05/03/24 Complete 10:31 Troponin I High LAB 05/03/24 Complete Sensitivity 10:31 Ct Abdomen/Pelvis CT 05/03/24 Resulted W/Contrast 10:31 12 Lead Ekg Tracing- EKG 05/03/24 Complete Technical 10:31 0.9%Nacl 1000ml (Ns PHA 05/03/24 Complete 1000ml) 11:00 Ketorolac PHA 05/03/24 Complete Tromethamine 30mg/Ml 11:00 Lipase LAB 05/03/24 Complete 10:31 Basic Metabolic Panel LAB 05/03/24 Complete 10:31 Levofloxacin 500 PHA 05/03/24 Complete Mg/D5w 100 Ml 12:14 Clonidine Hcl 0.1 Mg PHA 05/03/24 Complete Tablet (Catapres 0. 12:30 Iohexol (Omnipaque) PHA 05/03/24 Complete 13:16 Current Medications Medications (Trade) Dose Ordered Sig/Christian Route PRN Reason Start Time Stop Time Status Last Admin Dose Admin Clonidine HCl (CATApres 0.1 mg TAB) 0.1 mg ONCE ONCE PO 05/03/24 12:30 05/03/24 12:31 DC Iohexol (Omnipaque) 35,000 mg STK-MED ONCE IV 05/03/24 13:16 05/03/24 13:17 DC Ketorolac Tromethamine (toRADol) 30 mg ONCE ONCE IVP 05/03/24 11:00 05/03/24 11:01 DC 05/03/24 11:45 Levofloxacin/ Dextrose 100 ml @ 100 mls/hr ONCE STAT IV 05/03/24 12:14 05/03/24 13:13 DC 05/03/24 13:33 Sodium Chloride 1,000 ml @ 0 mls/hr ONCE ONCE IV 05/03/24 11:00 05/03/24 11:01 DC 05/03/24 11:44 Vital Signs Date Time Temp Pulse Resp B/P (MAP) Pulse Ox O2 Delivery O2 Flow Rate FiO2 05/03/24 15:54 98.2 75 17 167/88 96 Room Air* 0 21 05/03/24 13:29 62 17 161/88 97 Room Air* 0 21 05/03/24 12:30 72 167/87 05/03/24 10:28 98.2 85 16 190/114 96 Room Air 0 30, DR.OYETUNDE WILSON, PATIENT WILL BE ADMITTED FOR BOWEL OBSTRUCTION, HYPERTENSION AND VENTRAL HERNIA 1530/SPOKE WITH AND REVIEWED CT AND LABS. HE SAID SINCE I HAD BEEN ABLE TO REDUCE HERNIA THE HAVE PATIENT WEAR ABDOMINAL BINDER AND FOLLOW HIM WITH HIS OFFICE IN THE NEXT DAY OR TWO. HE SAID THEY GIVEN THE PATIENT'S OBESITY AND CURRENT KG WEIGHT THAT HE WOULD NOT DO SURGERY WITHOUT WEIGHT LOSS. I WILL FOLLOW UP WITH THE HOSPITALIST TO PASS ON THIS INFORMATION AND THE PATIENT. ALSO SPOKE WITH NEGRITA FELIX HOSPITALIST AND SHE IS AWARE THAT WE WILL NOT BE PERFORMING EMERGENCY SURGERY SINCE HERNIA WAS REDUCED. HEART Score Response (Comments) Value History: Low suspicion (0) 0 Age: 45-65yrs (+1) 1 Risk Factors: 1-2 risk factors (+1) 1 Initial Troponin: Normal limit (0) 0 Total 2 Medical Decision Making MDM MDM: DIFFERENTIAL DIAGNOSIS: BOWEL OBSTRUCTION/INCARCERATED HERNIA/STRANGULATED HERNIA/ELECTROLYTE IMBALANCE/DEHYDRATION/UTI RATIONALE: TESTS CONSIDERED AND ORDERED SECONDARY TO SHARED DECISION MAKING INCLUDE: LABS, AND RADIOLOGY PREVIOUS OUTSIDE RECORDS REVIEWED: OLD ER VISITS. REVIEWED RISK OF COMPLICATION AND/OR MORBIDITY OR MORTALITY OF PATIENT MANAGEMENT: MODERATE MEDICATIONS-PER MEDICATION RECONCILIATION NEED FOR HOSPITALIZATION: PATIENT DOES MEET CRITERIA FOR HOSPITALIZATION. PATIENT WILL NEED SURGICAL CONSULTATION MANAGEMENT NEED FOR EMERGENCY MAJOR/MINOR SURGERY: POSSIBLE HERNIOGRAPHY THERE ARE NO SOCIAL CONCERNS WITH THIS PATIENT. PRESCRIPTION DRUG MANAGEMENT PRESCRIPTIONS WILL INCLUDE SYMPTOMATIC CARE PATIENT'S PRIOR EXTERNAL MEDICAL RECORDS FROM OTHER ER VISITS WERE REVIEWED BY ME INDICATED. PRIOR TESTING AND RESULTS FROM PREVIOUS VISITS WERE REVIEWED. PRIOR TESTS WERE TAKEN INTO ACCOUNT WITH MEDICAL DECISION MAKING AND RESOURCE UTILIZATION, INDEPENDENT HISTORIAN/HISTORIANS WERE USED TO OBTAIN COMPLETE MEDICAL HISTORY. I INDEPENDENTLY INTERPRETED THE TEST THAT WERE PERFORMED, RESULTS WERE REVIEWED BY ME AND CONSIDERED FINDINGS ON RADIOLOGY IF ORDERED. MEDICAL MANAGEMENT AND EXAMINATION INTERPRETATION DISCUSSIONS WERE HAD BY ME W ITH OTHER QUALIFIED HEALTHCARE PROFESSIONALS INDICATED FOR THE PATIENT'S CARE. Procedure Procedure Dictation: PATIENT HAD PROCEDURE EXPLAINED AND HE AGREED TO PROCEED. PATIENT IN [place] UMBILICAL HERNIA REDUCED WITH NOTICEABLE REDUCTION. PATIENT TOLERATED WELL. DX & DISP Disposition: Discharge Decision to Admit Time: 14:27 Departure Impression: Primary Impression: Ventral hernia with obstruction Additional Impressions: Uncontrolled diabetes mellitus, Obesity, Accelerated hypertension Condition: Stable Additional Instructions: FOLLOW-UP WITH PRIMARY CARE PROVIDER IN 1 TO 2 DAYS. TAKE MEDICATIONS DIRECTED HERE IN THE EMERGENCY ROOM. OKAY TO CONTINUE HOME MEDICATIONS UNLESS OTHERWISE DISCUSSED DURING YOUR VISIT IN THE EMERGENCY ROOM TODAY. RETURN TO YOUR NEAREST EMERGENCY ROOM IF SYMPTOMS WORSEN OR IF THERE IS NO IMPROVEMENT. CALL 911 IF YOU NEED IMMEDIATE ASSISTANCE. TAKE TYLENOL OR MOTRIN [id number] NEEDED AND IF NO CONTRAINDICATIONS ARE PRESENT. INCREASE ORAL HYDRATION. A WOUND CULTURE OR URINE CULTURE WAS ORDERED HERE IN THE EMERGENCY ROOM DEPARTMENT PLEASE FOLLOW-UP WITH PRIMARY CARE PROVIDER AND ADVISE THEM TO GET REPEAT PORTS FROM OUR FACILITY. IF YOU HAD ANY JUDITH WRAP/SPLINTS THAT WERE APPLIED HERE, PLEASE DO NOT REMOVE THEM UNTIL YOU SEE YOUR PRIMARY CARE OR SPECIALTY. WEAR AN ABDOMINAL BINDER AT ALL TIMES. CALL SURGEON FOR APPOINTMENT THIS AFTERNOON TO SEE HIM IN THE NEXT 1-2 DAYS. Referrals: MENDEL TEAGUE NP (PCP) HANNAH NANCE MD Time of Disposition: 14:27 I have reviewed the case, and I agree with, Diagnosis and Plan I performed this substantive portion of this visit. I have reviewed and personally made and approve the management plan that is documented in the note by myself or the CAROL. I acknowledge full responsibility for the patient's management plan. DREAD GUERRERO NP May 03, 2024 10:33 ZULLY JORGENSEN MD May 03, 2024 18:43
--- NOTE | 2024-05-03 10:52 | NUR ---
PT JUST NOW PLACED IN MY ED BED [facility]
--- NOTE | 2024-05-03 11:12 | EKG ---
[facility] Test Date: 2024-05-03 Test Time: 10:52:24 Pat Name: SANDRA SPAULDING Department: [facility] Room: Gender: Reed Fixer: [facility] : 1970 Requested By: DREAD GUERRERO Order Number: [id number] Reading MD: Noel Sun Measurements Intervals [place] Rate: 78 P: 50 IA: 148 QRS: 14 QRSD: 87 T: 30 QT: 368 QTc: 419 Interpretive Statements Sinus rhythm No previous ECG available for comparison Electronically Signed On 05-03-2024 21:10:23 FUNDRAISING CONSULTANT by Noel Sun Please click the below link to view image of tracing.
[2024-05-03] MEDS: 0.9%NACL 1000ML 1,000 ML IV ONE (11:44)
[2024-05-03] MEDS: ketOROlac 30MG VIAL (30MG/ML) IVP ONE (11:45)
[2024-05-03 12:03] LABS: BASOPHILS # (AUTO) 0.09 K/uL (0.00-0.20); BASOPHILS % (AUTO) 0.7 % (0.0-5.0); EOSINOPHILS # (AUTO) 0.06 K/uL (0.00-0.70); EOSINOPHILS % (AUTO) 0.5 % (0.0-8.0); HEMATOCRIT 47.2 % (42-54); IMMATURE GRANULOCYTE ABSOLUTE 0.03 K/uL (0-1); LYMPHOCYTES # (AUTO) 1.9 K/uL (1.0-4.8); LYMPHOCYTES % (AUTO) 14.2 % (21.0-51.0); MEAN CORPUSCULAR HEMOGLOBIN 28.6 pg (27.0-33.0); MEAN CORPUSCULAR HGB CONC 34.3 g/dL (32.0-36.0); MEAN CORPUSCULAR VOLUME 83.4 fL (79-99); MONOCYTES # (AUTO) 0.7 K/uL (0.1-1.0); MONOCYTES % (AUTO) 5.6 % (3.0-13.0); NEUTROPHILS # (AUTO) 10.4 K/uL (1.8-7.7); NEUTROPHILS % (AUTO) 78.8 % (40.0-77.0); PLATELET COUNT (AUTO) 299 K/uL (130-400); RED BLOOD CELL COUNT(AUTO) 5.66 MIL/uL (4.50-6.20); RED CELL DISTRIBUTION WIDTH 13.4 % (11.0-15.5); WHITE BLOOD COUNT (AUTO) 13.1 K/uL (4.8-10.8)
[2024-05-03 12:16] LABS: CREATININE 0.9 mg/dL (0.5-1.3); POTASSIUM 4.1 mmol/L (3.5-5.1)
[2024-05-03] MEDS: cloNIDine HCL 0.1 MG TABLET PO ONE (12:30)
--- NOTE | 2024-05-03 12:42 | NUR ---
PT EN-ROUTE TO CT SCAN VIA STRETCHER AT THIS TIME.
--- NOTE | 2024-05-03 13:15 | NUR ---
PT STILL IN CT SCAN PER COMMUNITY CENTER WORKER/JUNIOR [employer] SYSTEMS ADMINISTRATOR
[2024-05-03] MEDS ORDERED: IOHEXOL 350 MG/ML 100ML INFUS..BTL IV ONE (13:16)
--- NOTE | 2024-05-03 13:27 | NUR ---
PT JUST NOW RETURNED FROM CT SCAN
[2024-05-03] MEDS: levoFLOXacin 500 MG/D5W 100 ML 100 ML IV STA (13:33)
--- NOTE | 2024-05-03 13:55 | HMCIMG ---
CT ABDOMEN/PELVIS W/CONTRAST HISTORY: Increased umbilical pain COMPARISON: None TECHNIQUE: Multiple sequential axial images of the abdomen and pelvis were obtained from the dome of the diaphragm through symphysis pubis. Patient was given 100 cc of Omnipaque through intravenous route. Oral contrast was not given. FINDINGS: No pleural effusion is seen bilaterally. There are interstitial fibrosis. There is no evidence of parenchymal disease or pulmonary nodule of the visualized lower lungs. Degenerative changes of the thoracolumbar spine are present. The heart is not enlarged. Liver measures 18 cm. Gastric distention is seen. There is small bowel dilatation with air-fluid levels with transitional point at the level of the ventral hernia in the anterior pelvic wall with bowel content causing bowel obstruction. The liver, spleen, adrenal glands and pancreas are unremarkable. There is no evidence of hydronephrosis bilaterally. No evidence of renal stone is seen. Fecal material is seen in the colon. There are normal size retroperitoneal and mesenteric lymph nodes. No ascites is seen. Atherosclerotic changes are present. Appendix is not well seen limiting evaluation. Pelvic sidewalls are symmetric bilaterally. Bladder is poorly distended. IMPRESSION: 1. Gastric distention is seen. There is small bowel dilatation with air-fluid levels with transitional point at the level of the ventral hernia in the anterior pelvic wall with bowel content causing bowel obstruction. CT was performed with one or more following dose reduction techniques: automated exposure control, adjustment of the mA and kv according to patient's size, or use of a iterative reconstruction technique.
--- NOTE | 2024-05-03 14:17 | NUR ---
REPORT ENDORSED TO BET RN
[2024-05-03 15:54] VITALS: BP 167/88; PULSE 75; RESP 17; TEMP 98.2; O2SAT 96
--- NOTE | 2024-05-03 16:00 | NUR ---
CATAPRESS NOT ADMINISTERED.PT IS BEING DISCHARGED AND ADVISED TO TAKE HOME MEDICATIONS HE DID NOT TAKE THEM EARLIER.
== END 2024-05-03 16:20 | disposition home or self-care (01) ==
LOC: EDH 10:27
DX: K43.6 Other and unspecified ventral hernia with obstruction, without gangrene (principal); E11.65 Type 2 diabetes mellitus with hyperglycemia; E66.9 Obesity, unspecified; I10 Essential (primary) hypertension; E78.00 Pure hypercholesterolemia, unspecified; Z79.84 Long term (current) use of oral hypoglycemic drugs; Z88.0 Allergy status to penicillin
CPT/HCPCS: 99285; 74177; 96365; 96361; 96375; 84484; 80048; 83690; 85025; 36415; 93005; J1956; J7030; J1885; Q9967